=== PATIENT | male | born 1965 | race Caucasian/White ===

== ENCOUNTER 2016-11-25 17:12 | Emergency (ER) | payer SELFPAY ==
[~2016-11-25] VITALS: Ht 185.4 cm; Wt 118.1 kg
[~2016-11-25 17:12] MED LIST: ASPI81TA28 PO
[2016-11-25 17:31] VITALS: TEMP 36.9; Ht 185.4 cm; Wt 118.1 kg
[2016-11-25] MEDS ORDERED: MORPHINE PAIN PUMP INJ (18:47)
[2016-11-25] MEDS ORDERED: PSEU30TA64 PO (18:47)
[2016-11-25 19:40] VITALS: BP 127/94; PULSE 66; O2SAT 98
[2016-11-25] MEDS ORDERED: OSEL75CA12 PO (19:59)
[2016-11-25] MEDS ORDERED: OSELTAMIVIR PHOSPHATE 75 MG CAP PO ONE (20:00)
--- NOTE | 2016-11-25 23:12 | EMERGENCY ROOM VISIT NOTE ---
History First contact with patient: 17:50 Chief Complaint: OTHER COMPLAINT Stated Complaint: FLU CHECK History of Present Illness The patient is a 51 year old male who presents to the Emergency Room with complaints of sinus congestion runny nose for the past one day. The patient does not report fever or cough. He presents to the emergency department today because his is very sick with a positive influenza a diagnosis. She is currently in the ICU, and he is concerned that he may also have influenza. The patient has not been taking anything [id number]-[id number] for his symptoms. He rates his discomfort a 2/10. Review of Systems More than 10 systems were reviewed and otherwise negative with the exception of history of present illness. Past Medical/Surgical History Medical Problems: (1) Anxiety State Nos (2) Brachial Neuritis Nos (3) Coronary Atherosclerosis Of [place] Coronary Vessel (4) Depressive Disorder Nec (5) Dyslipidemia (6) HTN (hypertension) (7) Hyperlipidemia Nec/Nos (8) Hypertension Nos (9) Multiple sclerosis (10) Multiple Sclerosis (11) Neuropathic pain Family History No pertinent family history Social History Smoking Status: Current Every Day Smoker Drug Use: none Marital Status: Housing Status: lives with family Occupation Status: employed Current/Historical Medications Scheduled Aspirin (Aspirin Ec), 81 MG PO QAM Oseltamivir (Tamiflu), 75 MG PO BID [Morphine Pain Pump], 1 DOSE INJ UD Scheduled PRN Pseudoephedrine Hcl (Sudafed), 30 MG PO UD PRN for Nasal Congestion Allergies Coded Allergies: No Known Allergies (Verified , 09/08/16) Physical Exam Vital Signs Date Time Temp Pulse Resp B/P Pulse Ox O2 Delivery O2 Flow Rate FiO2 11/25/16 19:40 66 16 127/94 98 Room Air 11/25/16 17:31 36.9 70 18 146/93 94 Room Air Pain Rating (0-10): 0 Physical Exam VITALS: Vitals are noted on the nurse's note and reviewed by myself. Vital signs stable. GENERAL: Well-developed, well-nourished, white male, who is in no acute distress and resting comfortably. Patient is cooperative with the examination. HEAD: Normocephalic atraumatic. EARS: External ear normal. External auditory canals clear, tympanic membranes pearly watts without erythema or effusion bilaterally. EYES: Pupils equal round and reactive to light and accommodation. Conjunctivae without injection, sclerae without icterus. Extraocular movements intact. NOSE: Patent, turbinates without inflammation or discharge. MOUTH: Mucous membranes moist. Tonsils are not enlarged. Pharynx without erythema, blood, or exudate. Uvula midline. Airway patent. NECK: Supple without nuchal rigidity. No lymphadenopathy. No thyromegaly. Cervical spine is nontender. HEART: Regular rate and rhythm without murmurs gallops or rubs. LUNGS: Clear to auscultation bilaterally without wheezes, rales or rhonchi. No retractions or accessory muscle use. Medical Decision & Procedures Laboratory Results Test 11/25/16 18:09 Influenza Type A Antigen POS for Influ A (NEG) Influenza Type B Antigen Neg for Influ B (NEG) Medications Administered Medications (Trade) Dose Ordered Sig/Tim Route Start Time Stop Time Status Last Admin Dose Admin Oseltamivir Phosphate (Tamiflu Cap) 75 mg NOW ONCE PO 11/25/16 20:00 11/25/16 20:01 DC 11/25/16 20:00 75 MG ED Course Physical exam and history were performed. Nursing notes and EMR were reviewed. Patient appears to have an exposure to influenza a. The patient is concerned because his is currently in the ICU with this diagnosis. Influenza swab was performed, and did return as positive. Because the patient's symptoms have been ongoing for less than 24 hours he was started on Tamiflu here in the department. I did educate the patient on avoiding contact with sick persons. The patient may use [id number] analgesics and antipyretics. He is to follow with his primary care physician next week and was otherwise invited back to the ER anytime. He voiced understanding of this plan. The chart was completed utilizing [employer] Speech Voice Recognition Software. Grammatical errors, random word insertions, pronoun errors, and incomplete sentences are an occasional consequence of this system due to software limitations, ambient noise, and hardware issues. Any formal questions or concerns about the content, text, or information contained within the body of this dictation should be directly addressed to the provider for clarification. . Medical Decision Differential diagnosis: Etiologies such as viral syndrome, otitis, pharyngitis, pneumonia, influenza, meningitis, urinary tract infection, sepsis, bacteremia, as well as others were entertained. Impression Primary Impression: Influenza A Departure Information Dispostion Home / Self-Care Condition GOOD Prescriptions Oseltamivir (Tamiflu) 75 Mg Cap 75 MG PO BID for 5 Days, #10 CAP Prov: Isai Horn PA-C 11/25/16 Forms HOME CARE DOCUMENTATION FORM, IMPORTANT VISIT INFORMATION Patient Instructions My [facility], ED Flu Additional Instructions You were seen and evaluated today on an emergency basis only. This is not a substitute for, or an effort to provide, complete comprehensive medical care. It is not possible to recognize and treat all injuries or illnesses in a single emergency department visit. For this reason it is recommended that you followup with your primary care physician next week for ongoing care and evaluation. For baseline pain relief you may alternate ibuprofen and acetaminophen every 4 hours for pain control. Take 600 mg ibuprofen (Advil) and then 4 hours later take 1000 mg acetaminophen (Tylenol). Do not take more than 3000 mg acetaminophen in a single day. Take Tamiflu 75 mg twice daily for the next 5 days. This will help shorten the amount of time that you are ill. You are likely very contagious. Influenza A can make people very sick. Avoid contact with the very old and very young. You should also try to avoid people with chronic medical disease. You are welcome to return to the emergency department anytime with new, worsening, or concerning symptoms.
[2017-03-08] MEDS ORDERED: TAMS0.4C38 PO (10:50)
[2017-03-08] MEDS ORDERED: VANC5CAP (10:50)
== END 2016-11-25 20:12 | disposition home or self-care (01) ==
LOC: C.EDB 17:13 → C.EDD 20:12
DX: J09.X2 Influenza due to identified novel influenza A virus with other respiratory manifestations (principal); G35 Multiple sclerosis; E78.5 Hyperlipidemia, unspecified; I25.10 Atherosclerotic heart disease of native coronary artery without angina pectoris; I10 Essential (primary) hypertension; F17.200 Nicotine dependence, unspecified, uncomplicated

== ENCOUNTER 2016-12-14 20:41 | Emergency (ER) | payer SELFPAY ==
[~2016-12-14] VITALS: Ht 185.4 cm; Wt 110.7 kg
[~2016-12-14 20:41] MED LIST changes: +MORPHINE PAIN PUMP INJ; +PSEU30TA64 PO
[2016-12-14 20:52] VITALS: TEMP 36.5; Ht 185.4 cm; Wt 110.7 kg
[2016-12-14] MEDS ORDERED: KETOROLAC TROMETHAMINE 30 MG/ML VIAL IV STA (21:20)
[2016-12-14] MEDS ORDERED: PROMETHAZINE HCL INJ 25 MG/ML 1 ML VIAL IV STA (21:20)
[2016-12-14] MEDS ORDERED: SODIUM CHLORIDE 0.9% 1000ML 2,000 ML IV STA (21:20)
[2016-12-14] MEDS ORDERED: ONDANSETRON INJ 2 MG/ML 2 ML VIAL IV STA (21:20)
[2016-12-14] MEDS ORDERED: LOPERAMIDE HCL 2 MG CAP PO STA (21:20)
[2016-12-14] MEDS ORDERED: MoRPHine SULFATE 4 MG/ML 1 ML CARP\\VIAL IV PRN (21:30)
[2016-12-14 21:51] LABS: BASO % 0.1 %; BASO ABS # 0.01 K/uL (0-0.2); COMPLETE YES; EOS % 0.6 %; HEMATOCRIT 48.1 % (42-52); IG% 0.2 %; LYMPH % 7.1 %; LYMPH ABS # 1.16 K/uL (1.2-3.4); MEAN CELL VOLUME 92.1 fL (80-100); MEAN CORPUSCULAR HEMOGLOBIN 30.7 pg (25-34); MEAN CORPUSCULAR HGB CONC 33.3 g/dl (32-36); MEAN PLATELET VOLUME 10.1 fL (7.4-10.4); MONO % 3.3 %; NEUT % 88.7 %; PLATELET COUNT 358 K/uL (130-400); RED BLOOD COUNT 5.22 M/uL (4.7-6.1); WHITE BLOOD COUNT 16.43 K/uL (4.8-10.8)
[2016-12-14 22:09] LABS: BUN/CREATININE RATIO 12.3 (10-20); CREATININE 1.8 mg/dl (0.60-1.40); POTASSIUM 4.2 mmol/L (3.5-5.1)
[2016-12-14] MEDS ORDERED: PROMETHAZINE HCL INJ 12.5 MG in SODIUM CHLORIDE 0.9% 50ML 50 ML IV STA (22:40)
[2016-12-15] MEDS ORDERED: ONDA4TAB10 SL (00:14)
[2016-12-15] MEDS ORDERED: ONDANSETRON HOME PACK 4MG OD TAB PO ONE (00:15)
[2016-12-15 00:34] VITALS: BP 126/73; PULSE 57; O2SAT 96
--- NOTE | 2016-12-15 00:40 | EMERGENCY ROOM VISIT NOTE ---
History Report prepared by Reddy: Gem Keith Under the Supervision of: Dr. Leonides Rothman M.D. First contact with patient: 21:15 Chief Complaint: VOMITING Stated Complaint: NAUSEA, VOMITING Nursing Triage Summary: n/v/d since this am History of Present Illness The patient is a 51 year old male who presents to the Emergency Room with complaints of multiple episodes of vomiting beginning 4 hours prior to arrival. He rates his pain as 6/10 in severity. The patient states that his symptoms began first with episodes of diarrhea. Since then he has experienced nausea, lower back pain, a headache, and multiple vomiting episodes. He notes that he feels very thirsty and dehydrated. The patient denies blood in stool, blood in emesis, or fever. Patient did take Pepto Bismol before arrival. 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 Review of Systems See HPI for pertinent positives & negatives. A total of 10 systems reviewed and were otherwise negative. Past Medical & Surgical Medical Problems: (1) Anxiety State Nos (2) Brachial Neuritis Nos (3) Coronary Atherosclerosis Of [place] Coronary Vessel (4) Depressive Disorder Nec (5) Dyslipidemia (6) HTN (hypertension) (7) Hyperlipidemia Nec/Nos (8) Hypertension Nos (9) Multiple sclerosis (10) Multiple Sclerosis (11) Neuropathic pain Family History Patient reports no known family medical history. Social History Smoking Status: Current Every Day Smoker Drug Use: none Marital Status: Housing Status: lives with family Occupation Status: employed Current/Historical Medications Scheduled Aspirin (Aspirin Ec), 81 MG PO QAM Ondasetron Odt (Zofran Odt), 4-8 MG SL Q6H [Morphine Pain Pump], 1 DOSE INJ UD Allergies Coded Allergies: No Known Allergies (Verified , 09/08/16) Physical Exam Vital Signs Date Time Temp Pulse Resp B/P Pulse Ox O2 Delivery O2 Flow Rate FiO2 12/15/16 00:34 57 20 126/73 96 12/14/16 22:57 88 18 115/72 96 12/14/16 22:09 76 20 137/73 93 Room Air 12/14/16 20:52 36.5 93 20 101/73 97 Room Air Physical Exam GENERAL: Patient is in no acute distress. HEENT: No acute trauma, normocephalic atraumatic, mucous membranes moist, no nasal congestion, no scleral icterus. NECK: No stridor, no adenopathy, no meningismus, trachea is midline. LUNGS: Clear to auscultation bilaterally, no wheeze, no rhonchi, breath sounds equal. HEART: Without murmurs gallops or rubs, regular rate and rhythm. ABDOMEN: Soft, nontender, bowel sounds positive and hyperactive, no hernias, no peritonitis. EXTREMITIES: No cyanosis or edema, full range of motion of all the joints without pain or difficulty, no signs for acute trauma. NEUROLOGIC: Oriented x 3, no acute motor or sensory deficits, no focal weakness. SKIN: No rash, no jaundice, no diaphoresis. Medical Decision & Procedures Laboratory Results 12/14/16 21:30 Red Blood Count 5.22, Mean Corpuscular Volume 92.1, Mean Corpuscular Hemoglobin 30.7, Mean Corpuscular Hemoglobin Concent 33.3, Mean Platelet Volume 10.1, Neutrophils (%) (Auto) 88.7, Lymphocytes (%) (Auto) 7.1, Monocytes (%) (Auto) 3.3, Eosinophils (%) (Auto) 0.6, Basophils (%) (Auto) 0.1, Neutrophils # (Auto) 14.57, Lymphocytes # (Auto) 1.16, Monocytes # (Auto) 0.55, Eosinophils # (Auto) 0.10, Basophils # (Auto) 0.01 12/14/16 21:30 Test 12/14/16 21:30 White Blood Count 16.43 K/uL (4.8-10.8) Red Blood Count 5.22 M/uL (4.7-6.1) Hemoglobin 16.0 g/dL (14.0-18.0) Hematocrit 48.1 % (42-52) Mean Corpuscular Volume 92.1 fL (80-100) Mean Corpuscular Hemoglobin 30.7 pg (25-34) Mean Corpuscular Hemoglobin Concent 33.3 g/dl (32-36) Platelet Count 358 K/uL (130-400) Mean Platelet Volume 10.1 fL (7.4-10.4) Neutrophils (%) (Auto) 88.7 % Lymphocytes (%) (Auto) 7.1 % Monocytes (%) (Auto) 3.3 % Eosinophils (%) (Auto) 0.6 % Basophils (%) (Auto) 0.1 % Neutrophils # (Auto) 14.57 K/uL (1.4-6.5) Lymphocytes # (Auto) 1.16 K/uL (1.2-3.4) Monocytes # (Auto) 0.55 K/uL (0.11-0.59) Eosinophils # (Auto) 0.10 K/uL (0-0.5) Basophils # (Auto) 0.01 K/uL (0-0.2) RDW Standard Deviation 45.6 fL (36.4-46.3) RDW Coefficient of Variation 13.4 % (11.5-14.5) Immature Granulocyte % (Auto) 0.2 % Immature Granulocyte # (Auto) 0.04 K/uL (0.00-0.02) Anion Gap 11.0 mmol/L (3-11) Est Creatinine Clear Calc Drug Dose 63.3 ml/min Estimated GFR () 49.4 Estimated GFR (Non- 42.6 BUN/Creatinine Ratio 12.3 (10-20) Calcium Level 10.0 mg/dl (8.5-10.1) Total Bilirubin 0.6 mg/dl (0.2-1) Aspartate Amino Transf (AST/SGOT) 21 U/L (15-37) Alanine Aminotransferase (ALT/SGPT) 34 U/L (12-78) Alkaline Phosphatase 68 U/L (45-117) Total Protein 9.3 gm/dl (6.4-8.2) Albumin 4.6 gm/dl (3.4-5.0) Globulin 4.7 gm/dl (2.5-4.0) Albumin/Globulin Ratio 1.0 (0.9-2) Lipase 143 U/L (73-393) Laboratory results reviewed by me. Medications Administered Medications (Trade) Dose Ordered Sig/Tim Route Start Time Stop Time Status Last Admin Dose Admin Sodium Chloride (Nss 1000ml) 2,000 ml @ 999 mls/hr Q2H1M STAT IV 12/14/16 21:20 12/14/16 23:20 DC 12/14/16 22:06 999 MLS/HR Promethazine HCl (Phenergan Inj) 12.5 mg NOW STAT IV 12/14/16 21:20 12/14/16 21:23 DC 12/14/16 21:20 12.5 MG Ondansetron HCl (Zofran Inj) 4 mg NOW STAT IV 12/14/16 21:20 12/14/16 21:23 DC 12/14/16 22:05 4 MG Ketorolac Tromethamine (Toradol Inj) 30 mg NOW STAT IV 12/14/16 21:20 12/14/16 21:23 DC 12/14/16 22:06 30 MG Loperamide HCl 2 mg 2 mg NOW STAT PO 12/14/16 21:20 12/14/16 21:23 DC 12/14/16 22:06 2 MG Promethazine HCl/ Sodium Chloride (Phenergan Inj/ Nss 50ml) 50.5 ml @ 202 mls/hr NOW STAT IV 12/14/16 22:40 12/14/16 22:54 DC 12/14/16 22:56 202 MLS/HR Ondansetron HCl (ZOFRAN ODT 4MG Home Pack) 1 homepack UD ONCE PO 12/15/16 00:15 12/15/16 00:16 DC 12/15/16 00:29 1 HOMEPACK ED Course 2116: The patient was evaluated in room B8. A complete history and physical exam was performed. 0: Imodium Cap 2 mg PO, Toradol Inj 30 mg IV, Zofran Inj 4 mg IV, Phenergan Inj 12.5 mg IV, Sodium Chloride 2,000 ml @ 999 mls/hr IV. 2130: Morphine Sulfate Inj 4 mg IV. 2240: Promethazine HCl 12.5 mg/ Sodium Chloride 50.5 ml @ 202 mls/hr IV. 2304: The patient is resting comfortably. 2355: I reevaluated the patient. He is feeling better. I reexamined his abdomen and he has no tenderness. 0015: Zofran ODT 4 mg Home Pack 1 homepack PO. 0017: Reevaluated the patient. Discussed results and discharge instructions: he verbalized understanding and agreement. The patient is ready for discharge. Medical Decision The patient is a 51 year old male who presents to the ED with complaints of vomiting episodes. Differential diagnoses considered include dehydration, viral illness, electrolyte imbalance, anemia, food borne illness. There is a moderate leukocytosis, this could be consistent with infection or just all the vomiting itself. There was no significant electrolyte abnormality- creatinine was slightly elevated consistent with dehydration. No evidence for hepatitis. On exam, the patient did not have peritonitis. He was not febrile or toxic. The patient received IV saline, 2 L. He received IV Zofran, IV Phenergan, IV Toradol and IV morphine. He was given a dose of oral loperamide. The patient is doing well, he has no complaints at present. I have reexamined his abdomen and it is nontender. He has not vomited since arrival here in the emergency room. The patient is being discharged with Zofran for nausea, a bland diet. He can return to this ER for worsening symptoms or if not improving. He was advised to follow with his doctor for recheck in one to 2 days and to have his creatinine rechecked. He understands. He was discharged in stable condition. His illness is likely viral. Impression Primary Impression: Vomiting Additional Impressions: Diarrhea Dehydration Scribe Attestation The scribe's documentation has been prepared under my direction and personally reviewed by me in its entirety. I confirm that the note above accurately reflects all work, treatment, procedures, and medical decision making performed by me. Departure Information Dispostion Home / Self-Care Prescriptions Ondasetron Odt (ZOFRAN ODT) 4 Mg Tab 4-8 MG SL Q6H for Nausea, #12 TAB Prov: Leonides Rothman M.D. 12/15/16 Referrals Esther Henderson M.D. (MEDICAL) (PCP) Forms HOME CARE DOCUMENTATION FORM, IMPORTANT VISIT INFORMATION Patient Instructions My [facility] Additional Instructions zofran 1-2 tab every 6 hours for nausea fluids bland diet---crackers, soup, gatorade, toast see your doctor in 1-2 days for a recheck and repeat lab testing to recheck the kidneys return if worsening as we discussed return for fever or worsening pain return if not improving Problem Qualifiers
[2017-03-08] MEDS ORDERED: TAMS0.4C38 PO (10:50)
[2017-03-08] MEDS ORDERED: VANC5CAP (10:50)
== END 2016-12-15 00:36 | disposition home or self-care (01) ==
LOC: C.EDB 20:42
DX: R11.10 Vomiting, unspecified (principal); R19.7 Diarrhea, unspecified; E86.0 Dehydration; F41.9 Anxiety disorder, unspecified; M54.10 Radiculopathy, site unspecified; F32.9 Major depressive disorder, single episode, unspecified; I10 Essential (primary) hypertension; E78.5 Hyperlipidemia, unspecified; G35 Multiple sclerosis; I25.10 Atherosclerotic heart disease of native coronary artery without angina pectoris; F17.210 Nicotine dependence, cigarettes, uncomplicated; Z79.82 Long term (current) use of aspirin

== ENCOUNTER → 2017-02-16 | Outpatient (CLI) | payer OTHER ==
[~2017-02-16] MED LIST changes: +ACET-1256 PO; +ANDG TOP; +HYDR-3983 PO; +IBUP-1450 PO; +ONDA4TAB10 SL; +OXYC-57 PO; +OXYC7.5T65 PO; -PSEU30TA64 PO; +TAMS0.4C38 PO; +VANC5CAP
== END | disposition home or self-care (01) ==
LOC: C.LAB 12:01
PROVIDERS: ATTEND Anesthesiology
DX: E29.1 Testicular hypofunction (principal); F11.20 Opioid dependence, uncomplicated

== ENCOUNTER → 2017-03-01 | Outpatient (CLI) | payer OTHER ==
[2017-03-01 12:38] LABS: BASO % 0.6 %; BASO ABS # 0.05 K/uL (0-0.2); COMPLETE YES; EOS % 4.4 %; HEMATOCRIT 48.6 % (42-52); IG% 0.1 %; LYMPH % 35.5 %; LYMPH ABS # 3.06 K/uL (1.2-3.4); MEAN CELL VOLUME 94.9 fL (80-100); MEAN CORPUSCULAR HEMOGLOBIN 30.1 pg (25-34); MEAN CORPUSCULAR HGB CONC 31.7 g/dl (32-36); MEAN PLATELET VOLUME 10.6 fL (7.4-10.4); MONO % 7.5 %; NEUT % 51.9 %; PLATELET COUNT 267 K/uL (130-400); RED BLOOD COUNT 5.12 M/uL (4.7-6.1); WHITE BLOOD COUNT 8.63 K/uL (4.8-10.8)
[2017-03-01 12:41] LABS: CALCIUM 10.1 mg/dl (8.5-10.1)
[2017-03-01 12:50] LABS: ALT/SGPT 27 U/L (12-78); BLOOD UREA NITROGEN 13 mg/dl (7-18); BUN/CREATININE RATIO 15.1 (10-20); CARBON DIOXIDE 30 mmol/L (21-32); CHLORIDE 103 mmol/L (98-107); CHOLESTEROL 202 mg/dl (0-200); CREATININE 0.88 mg/dl (0.60-1.40); GLUCOSE 98 mg/dl (70-99); SODIUM 141 mmol/L (136-145); TRIGLYCERIDES 189 mg/dl (0-150); VERY LOW DENSITY LIPOPROT CALC 38 mg/dl
[2017-03-01 12:51] LABS: URINE APPEARANCE CLEAR (CLEAR); URINE BILIRUBIN NEG (NEG); URINE COLOR YELLOW; URINE EPITHELIAL CELL AUTO 0-5 /lpf (0-5); URINE NITRITE NEG (NEG); URINE SPECIFIC GRAVITY 1.019 (1.000-1.030); UROBILINOGEN NEG (NEG); ZZUR CULT IF INDIC CLEAN CATCH NO
[2017-03-01 12:56] LABS: MANUAL MICROSCOPIC REQUIRED? NO; REVIEW REQ? NO
[2017-03-01 13:00] LABS: ALB/GLOB RATIO 1.2 (0.9-2); ALKALINE PHOSPHATASE 58 U/L (45-117); AST/SGOT 16 U/L (15-37); CHOLESTEROL/HDL RATIO 4.1; HDL CHOLESTEROL 49 mg/dl; LDL CHOLESTEROL CALCULATED 115 mg/dl
[2017-03-01 13:19] LABS: ESTIMATED AVERAGE GLUCOSE 117 mg/dl; HA1C FLAG Normal (Normal)
== END | disposition home or self-care (01) ==
LOC: C.LABBFT 08:11
PROVIDERS: ATTEND Internal Medicine
DX: D89.2 Hypergammaglobulinemia, unspecified (principal); R73.9 Hyperglycemia, unspecified; E29.1 Testicular hypofunction; N40.1 Benign prostatic hyperplasia with lower urinary tract symptoms; E78.5 Hyperlipidemia, unspecified; E55.9 Vitamin D deficiency, unspecified

== ENCOUNTER → 2017-04-25 | Outpatient (CLI) | payer OTHER ==
[~2017-04-25] MED LIST changes: -ONDA4TAB10 SL; -VANC5CAP
== END | disposition home or self-care (01) ==
LOC: C.LABBFT 11:06
PROVIDERS: ATTEND Urology
DX: N52.9 Male erectile dysfunction, unspecified (principal)

== ENCOUNTER → 2017-05-25 | Outpatient (CLI) | payer OTHER ==
[~2017-05-25] MED LIST changes: -ACET-1256 PO; -ANDG TOP; -HYDR-3983 PO; -IBUP-1450 PO; -OXYC-57 PO; -OXYC7.5T65 PO
== END | disposition home or self-care (01) ==
LOC: C.PATHSPEC 10:59
PROVIDERS: ATTEND Urology
DX: R97.20 Elevated prostate specific antigen [PSA] (principal)

== ENCOUNTER → 2017-08-31 | Outpatient (CLI) | payer OTHER ==
[~2017-08-31] MED LIST changes: +GADAVIST IV PRN
--- NOTE | 2017-08-31 10:38 | DIAGNOSTIC IMAGING REPORT ---
MRI OF THE THORACIC SPINE COMBO CLINICAL HISTORY: Increase in chronic back pain. Assess for granuloma at catheter tip. COMPARISON STUDY: MRI of the thoracic spine dated 12/05/2012. Radiographs of the lumbar spine dated 10/01/2015. TECHNIQUE: MRI of the thoracic spine is performed utilizing various T1 and T2-weighted sequences in the axial and sagittal planes. Contrast-enhanced images were acquired following the IV administration of 11 cc of Gadavist. The examination is moderately compromised by motion artifact. FINDINGS: Vertebral body height and alignment are maintained throughout the thoracic spine. There is no MRI evidence of fracture. The transverse and spinous processes are intact as imaged. No destructive bony lesion is seen. The intervertebral discs demonstrate minimal desiccation. The disc spaces are normal in height. There is no evidence of large disc herniation or central canal compromise. No significant neural foraminal stenosis is seen throughout the thoracic spine. The patient's pain pump catheter is not well visualized. This is seen within the anterior aspect of the thecal sac at the level of T12-L1, and likely extends at least to the level of T7 within the right aspect of the central canal. There is a 4 mm T2 hypointense structure suggested along the course of the catheter at the level of T7, best seen on axial image 17. This may represent a small granuloma as clinically queried. The thoracic spinal cord is normal in morphology and signal intensity. No abnormal cord enhancement is identified on the postcontrast series. The paraspinous soft tissues are normal as imaged. The lung parenchyma is grossly clear, but not well evaluated by MRI. IMPRESSION: 1. Motion degraded examination. 2. There is no disc herniation, central canal stenosis, or significant neural foraminal narrowing seen throughout the thoracic spine. 3. The patient's intrathecal catheter is not well visualized. This appears to extend cranially from the lower thoracic region to at least the level of T7. 4. There is a questionable 4 mm T2 hypointense structure around the visualized catheter at the level of T7. This is only seen on the axial images and could represent artifact versus a catheter tip granuloma as clinically suspected. 5. No destructive bony lesion is seen. Dictated: 08/31/2017 10:00 AM Transcribed: 08/31/2017 10:37 AM [email or web address] Electronically signed by: Leonides Lange M.D. 08/31/2017 11:06 AM Dictated Date/Time: 08/31/2017 10:00 AM
== END | disposition home or self-care (01) ==
LOC: C.MRIBC 08:39
PROVIDERS: ATTEND Physician Assistant Medical
DX: M54.6 Pain in thoracic spine (principal); Z97.8 Presence of other specified devices